=== PATIENT | female | born 1985 | race Caucasian/White ===

== ENCOUNTER 2022-02-22 14:29 | Outpatient (CLI) | payer BC, SELFPAY | END 2022-02-22 14:30 | disposition home or self-care (01) | LOC: ANHGOSHLAB 14:31 | PROVIDERS: PCP Family Medicine; Visit Provider Family Medicine | DX: Z11.1 Encounter for screening for respiratory tuberculosis (principal) | CPT/HCPCS: 36415; 86480 ==

== ENCOUNTER 2022-05-31 09:37 | Outpatient (CLI) | payer BC, SELFPAY ==
--- NOTE | ~2022-05-31 | MM_ITS ---
EXAMINATION: MM screening kristie BI w sweetie HISTORY: Screening TECHNIQUE: Craniocaudal and mediolateral oblique 3-D tomosynthesis images were obtained and synthetic 2-D images were generated. CAD analysis was submitted and interpreted. COMPARISON: No prior mammogram is available for comparison at this institution. BREAST PARENCHYMAL COMPOSITION: The breasts are extremely dense, which lowers the sensitivity of mamm ography FINDINGS: There is no evidence of suspicious mass, calcification, or architectural distortion to sugg est malignancy in either breast. There has been no suspicious interval change. IMPRESSION: 1. No mammographic evidence of malignancy. 2. Recommend routine screening mammography in one year. BI-RADS Category 1: Negative Reviewed, dictated and finalized at location A.
== END 2022-05-31 09:38 | disposition home or self-care (01) ==
LOC: ANHIMG 09:39
PROVIDERS: PCP Family Medicine; Visit Provider Family Medicine
DX: Z12.31 Encounter for screening mammogram for malignant neoplasm of breast (principal)
CPT/HCPCS: 77063; 77067

== ENCOUNTER 2024-07-23 08:18 | Outpatient (CLI) | payer BC, SELFPAY ==
--- OUTSIDE RECORDS SUMMARY | 2024-07-23 08:22 | XMS_ITS | Clinical Summary ---
Author Organization [facility] Address [address] [place] [address] Care Team Providers Care Repair Service Dispatcher Name Role Phone Kristine Turcios MD Primary Care Provider + Hannah Macias MD Unavailable [phone] Allergies No known active allergies Medications albuterol HFA (PROVENTIL HFA,VENTOLIN HFA,PROAIR HFA) 90 mcg/actuation inhaler Inhale 2 puffs every 6 (six) hours as needed for wheezing Active PNV 66-iron asn-mqqeb-bkz- dha 27-1.25-55-300 mg capsule Take by mouth daily Active methylphenidat e HCl (RITALIN) 10 mg tablet Take 1 tablet (10 mg total) by mouth 3 (three) times a day 3 Active aspirin 81 mg enteric coated tablet Take 1 tablet (81 mg total) by mouth daily Active acetaminophen (TYLENOL) 500 mg tablet Take 2 tablets (1,000 mg total) by mouth every 6 (six) hours as needed for pain 4 Active ibuprofen (ADVIL,MOTRIN) 600 mg tabletIndicati ons:Pain Take 1 tablet (600 mg total) by mouth 4 (four) times a day as needed for pain (pain) 4 Active buPROPion XL (WELLBUTRIN XL) 300 mg 24 hr tabletIndicati ons:Depression during in third trimester TAKE 1 TABLET(300 MG) BY MOUTH DAILY 30 tablet 5 Active buPROPion XL (WELLBUTRIN XL) 300 mg 24 hr tabletIndicati ons:Depression during in third trimester Take 1 tablet (300 mg total) by mouth daily 90 tablet 3 4 025 Discontinued Active Problems Problem Noted Date Diagnosed Date Term 08/29/2023 Depression 05/13/2023 Overview (06/13/2023): Wellbutrin 300 Xl-- doing well. Single umbilical artery 04/25/2023 Overview (08/15/2023): Normal NIPT and anatomy screening ultrasound. Supervision of high risk --DELIVERED Overview (08/29/2023): 08/29/23 vaginal delivery, 6lbs 6oz, female, Mercedes Macias, term induction 40 AMA--low risk NIPT SUA--normal growth, continue testing Depression-- wellbutrin XL 300 Lab Results Component Value Date ABORH O Positive 03/08/2023 IDCOOMB Negative 03/08/2023 [id number] Nonreactive 03/08/2023 LABRPR Nonreactive 03/08/2023 RUBELIGG Reactive 03/08/2023 HEPBSAG Nonreactive 03/08/2023 CTRACHOMATIS Not Detected 03/08/2023 [id number] Not Detected 03/08/2023 URINE CULTURE: negative NIPT: low risk GCT @24-28 weeks: 178 ---> 3 hour test normal GBS @36 weeks: negative Resolved Problems Problem Noted Date Diagnosed Date Resolved Date 39 weeks gestation of 08/29/2023 08/29/2023 BV (bacterial vaginosis) on recent pap 04/25/2023 05/13/2023 Overview (04/25/2023): flagyl 500 BID for 7 days Pelvic floor dysfunction 03/08/2023 Overview (03/08/2023): Pelvic floor weakness and stress incontinence PT ordered for [facility] Normal supervision 02/22/2023 07/25/2023 Overview (06/27/2023): 40 AMA--low risk NIPT SUA--follow growth, testing at 32 weeks. Recommended weekly testing but pt unable to come in that often and plans to come in every other week for testing. Rec kick counts. Depression-- wellbutrin XL 300 Pelvic floor PT Continue routine care Facial aging 09/03/2019 02/22/2023 Asthma 02/22/2023 Depression 02/22/2023 ADHD 02/22/2023 Immunizations Immunization Administration Dates Next Due Tdap 07/25/2023 Surgical History Surgery Date Site/Laterality Comments ANTERIOR CRUCIATE LIGAMENT REPAIR 03/11/2010 - 03/10/2011 Left VAGINAL DELIVERY BOY VAGINAL DELIVERY 08/29/2023 vaginal delivery, 6lbs 6oz, female, Mercedes Figueroamaximnaima, term induction Medical History Medical History Date Comments Asthma Depression Adhd Pelvic floor dysfunction 03/08/2023 Pelvic floor weakness and stress incontinence PT ordered for [facility] Family History Medical History Relation Name Comments Osteoarthritis Father COPD Mother Hypertension Mother Relation Name Status Comments Father Mother Social History Tobacco Use Types Packs/Day Years Used Date Smoking Tobacco: Never Passive Smoke Exposure: Past Smokeless Tobacco: Never Tobacco Cessation:Counseling Given: Not Answered Alcohol Use Standard Drinks/Week Comments Not Currently 1 (1 standard drink = 0.6 oz pur e alcohol) AUDIT-C Answer Date Recorded Q1: How often do you have a drink containing alc ohol? Never 02/21/2023 Average Number of Drinks Not on file 023 Frequency of Binge Drinking Not on file 02/08 [place] Depression Scale Answer Date Recorded [place] Depression Scale Total 7 08/31/2023 The thought of harming myself has occurred to me . Never 08/31/2023 Personal Safety Answer Date Recorded Have you ever been in or are you currently in a harmful physical or emotional relationship or is someone making you feel afraid or unsafe? 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 Not on file Obstetrics History Para Term AB IAB SAB Ectopic Multiple Livin g Live Births 2 2 2 0 2 1 Date Outcome GA Total Labor Labor//3rd Weight Sex Type Anes PTL Chaya A1 A5 Name Clin Term M Vag-Sp ont Comments:Favian Drummond 2023 Term 39w 2d 4h 45m 4h 02m/0h 18m/0h 25m 2.88 kg (6 lb 5.6 oz) F Vagina l Epidur al N Livin g 10 10 Mercedes andrade, Hannah Oliva MD Complications:None Delivery Location:This [facility] ([employer] [facility]) Comments Normal Pap smears No sexually transmitted diseases 08/29/23 vaginal delivery, 6lbs 6oz, female, Mercedes Cynthia Colleen, term induction Last Filed Vital Signs Vital Sign Reading Time Taken Comments Blood Pressure 118/75 08/31/2023 8:37 AM CDT Pulse 74 08/31/2023 8:37 AM CDT Temperature 36.6 C (97.8 F) 08/31/2023 8:37 AM CDT Respiratory Rate 18 08/31/2023 8:37 AM CDT Oxygen Saturation 99% 08/31/2023 8:37 AM CDT Inhaled Oxygen Concentration - - Weight 95.3 kg (210 lb) 08/28/2023 11:50 PM CDT Height 165.1 cm (5' 5 ) 08/28/2023 11:50 PM CDT Body Mass Index 34.95 08/28/2023 11:50 PM CDT Plan of Treatment Health Maintenance Due Date Last Done Comments Breast Cancer Screening-Mammogram 1983 Varicella Vaccines (1 of 2 - 13+ 2-dose series) 06/01/1996 Hepatitis B Screening 06/01/2001 Regular Well Visit/Exam 18-64 06/01/2001 Covid-19 Vaccine (2023-2 5 season) 2023 12/08/2021, 12/15/2020, 03/18/2020 Cervical Cancer Screening 03/08/20242022, 03/08/2023 Depression Screening 08/30/2024 08/31/2023 Influenza Vaccine (Season Ended) 2024 12/08/2021, 11/26/2013, 12/11/2012 DTaP/Tdap/Td Vaccine (2 - Td or Tdap) 07/24/2033 07/25/2023 Hepatitis C Screening Completed 03/08/2023 HPV Vaccines Aged Out No longer eligi ble based on patient's age to complete this topic Pneumococcal vaccine <65 Aged Out No longer eligible based on patient's age to complete this topic Procedures Procedure Name Priority Date/Time Associated Diagnosis Comments HEPATITIS C ANTIBODY Routine 03/08/2023 2:43 PM CALLISTHENICS INSTRUCTOR Encounter for supervision of normal , antepartum, unspecified HIGH RISK HPV DNA DETECTION WITH GENOTYPING Routine 03/08/2023 2:34 PM CALLISTHENICS INSTRUCTOR Encounter for supervision of normal , antepartum, unspecified Encounter for Papanicolaou smear for cervical cancer screening Screening for human papillomavirus (HPV) from Last 3 Months or Most Recently Relevant to Health Maintenance Results * Hepatitis C antibody Blood (03/08/2023 2:43 PM CALLISTHENICS INSTRUCTOR) Hep C Ab Nonreactive Nonreactive [facility] Comment: Interpretive Data Nonreactive: Antibodies to HCV not detected. Does NOT exclude the possibility of recent exposure to HCV. Equivocal: Equivocal for HCV antibodies. Supplemental molecular testing will be automatically performed to determine infection status in accordance with current CDC screening recommendations. Reactive: Positive for HCV antibodies. This may represent current or past HCV infection. Supplemental molecular testing will be automatically performed to determine current infection status in accordance with current CDC screening recommendations. Interpretive data was last revised on 2019. Blood 03/08/2023 2:43 PM CALLISTHENICS INSTRUCTOR 03/08/2023 6:45 PM CALLISTHENICS INSTRUCTOR Hannah Macias MD LAB MICROBIOLOGY - GEN ERAL ORDERABLES Edited Result - Final [facility] [address] Department [place] [address] * High Risk HPV DNA Detection with Genotyping (Molecular component) (03/08/2023 2:34 PM CALLISTHENICS INSTRUCTOR) HPV HR 16 Not Detected Not Detected [facility] HPV HR 18 Not Detected Not Detected [facility] HPV HR Non 16/18 Not Detected Not Detected [facility] Comment: Interpretive Data Nucleic acid amplification for detection of high-risk Human Papilloma virus (HPV) is performed by the Azalia Kiley 4800 HPV test, which specifically detects high-risk HPV-16, 18, 31, 33, 35, 39, 45, 51, 52, 56, 58, 59, 66, and 68 genotypes. This assay has been approved by the [place] Food and Drug Administration for detection of HPV in cervical specimens collected by a physician using an endocervical brush/spatula or cervical broom and placed in the ThinPrep Pap Test PreservCyt collection containers. The performance characteristics of this test have been verified by the [facility]. Correlate with separately reported cytology results, as applicable. Interpretive data last revised 22 Endocervical 03/08/2023 2:34 PM CALLISTHENICS INSTRUCTOR 03/08/2023 6:54 PM CALLISTHENICS INSTRUCTOR Narrative [facility] [employer] [facility] - 03/14/2023 9:31 PM CALLISTHENICS INSTRUCTOR Clinical history and diagnosis->Z01.419 Number of vials->1 Testing type->Screening Last menstrual period (date if known)->11/27/22 Menstrual status-> Hannah Macias MD LAB BODY FLUIDS AND ST OOLS ORDERABLES Final Result [facility] [address] Department [place] [address] from Last 3 Months or Most Recently Relevant to Health Maintenance Insurance [place] Advance Directives For more information, please contact: [phone] * Full Code (Latest Code Status on File) Date Activated Date Inactivated Comments 08/29/2023 3:42 PM 08/31/2023 3:50 PM * Full Code Date Activated Date Inactivated Comments 08/29/2023 12:43 AM 08/29/2023 3:42 PM Full CPR in case of cardiopulmonary arrest Care Teams Repair Service Dispatcher Relationship Specialty Start Date End Date Kristine Turcios MD PCP - General Family Medicine 02/14/23 Hannah Macias MD Consulting Physician Obstetrics and Gynecology 02/14/23
--- OUTSIDE RECORDS SUMMARY | 2024-07-23 08:22 | XMS_ITS | Referral Summary ---
Author Organization [facility] Address [address] [place] [address] Care Team Providers Care Java Scala Developer Name Role Phone Kristine Turcios MD Primary Care Provider + Hannah Macias MD Unavailable [phone] Allergies No known active allergies Medications albuterol HFA (PROVENTIL HFA,VENTOLIN HFA,PROAIR HFA) 90 mcg/actuation inhaler Inhale 2 puffs every 6 (six) hours as needed for wheezing Active PNV 66-iron mwy-zkikm-ntn- dha 27-1.25-55-300 mg capsule Take by mouth [...] ABORH O Positive 03/08/2023 IDCOOMB Negative 03/08/2023 [id number] Nonreactive 03/08/2023 LABRPR Nonreactive 03/08/2023 RUBELIGG Reactive [...] weakness and stress incontinence PT ordered for [facility] Normal supervision 02/22/2023 07/25/2023 Overview (06/27/2023): 40 [...] Immunization Administration Dates Next Due Tdap 07/25/2023 Social History Tobacco Use Types Packs/Day Years [...] of Binge Drinking Not on file 02/08 [place] Depression Scale Answer Date Recorded [place] Depression Scale Total 7 08/31/2023 The thought [...] on file Legal Sex Female 12:53 PM DIPPER CLOCK AND WATCH HANDS Gender Identity Not on file Sexual Orientation Not on file 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 Last Filed Vital Signs Vital Sign Reading [...] 08/28/2023 11:50 PM CDT Plan of Treatment Not on file Procedures Procedure Name Priority Date/Time Associated Diagnosis Comments HEPATITIS C ANTIBODY Routine 03/08/2023 2:43 PM DIPPER CLOCK AND WATCH HANDS Encounter for supervision of normal , antepartum, unspecified HIGH RISK HPV DNA DETECTION WITH GENOTYPING Routine 03/08/2023 2:34 PM DIPPER CLOCK AND WATCH HANDS Encounter for supervision of normal , antepartum, unspecified Encounter for Papanicolaou smear for cervical cancer screening Screening for human papillomavirus (HPV) from Last 3 Months or Most Recently Relevant to Health Maintenance Results * Hepatitis C antibody Blood (03/08/2023 2:43 PM DIPPER CLOCK AND WATCH HANDS) Hep C Ab Nonreactive Nonreactive [facility] Comment: Interpretive Data Nonreactive: Antibodies to HCV [...] revised on 2019. Blood 03/08/2023 2:43 PM DIPPER CLOCK AND WATCH HANDS 03/08/2023 6:45 PM DIPPER CLOCK AND WATCH HANDS Hannah Macias MD LAB MICROBIOLOGY - GEN ERAL ORDERABLES Edited Result - Final [facility] [address] Department [place] [address] * High Risk HPV DNA Detection with Genotyping (Molecular component) (03/08/2023 2:34 PM DIPPER CLOCK AND WATCH HANDS) HPV HR 16 Not Detected Not Detected [facility] HPV HR 18 Not Detected Not Detected [facility] HPV HR Non 16/18 Not Detected Not Detected [facility] Comment: Interpretive Data Nucleic acid amplification for [...] this test have been verified by the [facility]. Correlate with separately reported cytology results, as applicable. Interpretive data last revised 22 Endocervical 03/08/2023 2:34 PM DIPPER CLOCK AND WATCH HANDS 03/08/2023 6:54 PM DIPPER CLOCK AND WATCH HANDS Narrative [facility] - 03/14/2023 9:31 PM DIPPER CLOCK AND WATCH HANDS Clinical history and diagnosis->Z01.419 Number of vials->1 Testing type->Screening Last menstrual period (date if known)->11/27/22 Menstrual status-> Hannah Macias MD LAB BODY FLUIDS AND ST OOLS ORDERABLES Final Result [facility] [address] Department [place] [address] from Last 3 Months or Most Recently Relevant to Health Maintenance Insurance [place] Advance Directives For more information, please contact: [phone] * Full Code (Latest Code Status on File) Date Activated Date Inactivated Comments 08/29/2023 3:42 PM 08/31/2023 3:50 PM * Full Code Date Activated Date Inactivated Comments 08/29/2023 12:43 AM 08/29/2023 3:42 PM Full CPR in case of cardiopulmonary arrest Care Teams Java Scala Developer Relationship Specialty Start Date End Date Kristine Turcios MD PCP - General Family Medicine 02/14/23 Hannah Macias MD Consulting Physician Obstetrics and Gynecology 02/14/23
[2024-07-23 19:11] LABS: Basophils Absolute Auto 0.1 K/mm3 (0.0-0.1); Basophils Percent Auto 0.7 % (0.2-1.2); Eosinophils Absolute Auto 0.2 K/mm3 (0-0.3); Eosinophils Percent Auto 2.9 % (0-4.4); Hematocrit 42.7 % (37.0-47.0); Hemoglobin 14.1 g/dL (12.0-15.0); Immature Granulocyte Absolute 0.02 K/mm3 (0.00-0.031); Immature Granulocyte Percent A 0.3 % (0-0.5); Lymphocytes Absolute Auto 2.53 K/mm3 (0.9-3.2); Lymphocytes Percent Auto 35.3 % (18.3-44.2); Mean Corpuscular Hemoglobin 31.5 pg (26-34); Mean Corpuscular Volume 95.3 fl (80-100); Mean Platelet Volume 9.7 fl (7.4-10.4); Monocytes Absolute Auto 0.4 K/mm3 (0.1-0.6); Monocytes Percent Auto 6.1 % (2.6-8.5); Neutrophils Absolute Auto 3.9 K/mm3 (1.3-6.7); Neutrophils Percent Auto 54.7 % (45.5-73.1); Platelet Count Result 264 k/mm3 (150-375); Red Blood Count 4.48 M/mm3 (4.2-5.4); Red Cell Distribution Width 12.6 % (11.5-14.5); White Blood Count 7.2 K/mm3 (4.5-10.0)
[2024-07-23 19:38] LABS: LDL Cholesterol Direct 75 mg/dL
[2024-07-23 20:02] LABS: Alanine Aminotransferase 18 U/L (6-35); Albumin Level 4.7 g/dL (3.5-5.1); Alkaline Phosphatase 63 U/L (38-126); Anion Gap 13 mmol/L (4-12); Aspartate Amino Transferase 35 U/L (14-36); Bilirubin,Total 0.7 mg/dL (0.2-1.3); Blood Urea Nitrogen 13 mg/dL (7-17); Calcium 9.2 mg/dL (8.4-10.2); Carbon Dioxide 21 mmol/L (22-30); Chloride 99 mmol/L (98-107); Cholesterol 184 mg/dL (0-200); Estimated Glomerular Filt Rate > 60; Glucose 49 mg/dL (65-110); HDL Direct 96 mg/dL; Potassium 3.6 mmol/L (3.4-5.0); Sodium 133 mmol/L (137-145); Triglycerides 65 mg/dL (<150)
== END 2024-07-23 08:19 | disposition home or self-care (01) ==
LOC: ANHGOSHLAB 08:19
PROVIDERS: PCP Family Medicine; Visit Provider Family Medicine
DX: Z00.00 Encounter for general adult medical examination without abnormal findings (principal)
CPT/HCPCS: 36415; 80053; 80061; 85025

== ENCOUNTER 2024-08-14 14:36 | Outpatient (CLI) | payer BC, SELFPAY ==
--- NOTE | ~2024-08-14 | MM_ITS ---
EXAMINATION: MM screening kristie BI w sweetie HISTORY: Screening TECHNIQUE: Craniocaudal and mediolateral oblique 3-D tomosynthesis images were obtained and synthetic 2-D images were generated. CAD analysis was submitted and interpreted. COMPARISON: Comparison to multiple prior studies sequentially, with oldest reviewed study dated 05/31. BREAST PARENCHYMAL COMPOSITION: Dense: The breasts are extremely dense, which lowers the sensitivity of mammography. FINDINGS: There is no evidence of suspicious mass, calcification, or architectural distortion to sugg est malignancy in either breast. There has been no suspicious interval change. IMPRESSION: 1. No mammographic evidence of malignancy. 2. Recommend routine screening mammography in one year. BI-RADS Category 1: Negative Reviewed, dictated and finalized at location []
--- OUTSIDE RECORDS SUMMARY | 2024-08-14 14:39 | XMS_ITS | Referral Summary ---
Author Organization [facility] Address [address] [place] [address] Care Team Providers Care Furnace Hand Name Role Phone Kristine Turcios MD Primary Care Provider + Hannah Macias MD Unavailable [phone] Allergies No known active allergies Medications albuterol HFA (PROVENTIL HFA,VENTOLIN HFA,PROAIR HFA) 90 mcg/actuation inhaler Inhale 2 puffs every 6 (six) hours as needed for wheezing Active PNV 66-iron kfl-tthqh-krb-d deng 27-1.25-55-300 mg capsule Take by mouth daily Active methylphenidate HCl (RITALIN) 10 mg tablet Take 1 tablet (10 mg total) by mouth 3 (three) times a day 01/01/2023 Active aspirin 81 mg enteric coated tablet Take 1 tablet (81 mg total) by mouth daily Active acetaminophen (TYLENOL) 500 mg tablet Take 2 tablets (1,000 mg total) by mouth every 6 (six) hours as needed for pain 08/30/2023 Active ibuprofen (ADVIL,MOTRIN) 600 mg tabletIndicatio ns:Pain Take 1 tablet (600 mg total) by mouth 4 (four) times a day as needed for pain (pain) 08/30/2023 Active buPROPion XL (WELLBUTRIN XL) 300 mg 24 hr tabletIndicatio ns:Depression during in third trimester TAKE 1 TABLET(300 MG) BY MOUTH DAILY 30 tablet 06/30/2024 Active Active Problems Problem Noted Date Diagnosed Date [...] ABORH O Positive 03/08/2023 IDCOOMB Negative 03/08/2023 [id number] Nonreactive 03/08/2023 LABRPR Nonreactive 03/08/2023 RUBELIGG Reactive [...] weakness and stress incontinence PT ordered for [facility] Normal supervision 02/22/2023 07/25/2023 Overview (06/27/2023): [...] of Binge Drinking Not on file 02/08 [place] Depression Scale Answer Date Recorded [place] Depression Scale Total 7 08/31/2023 The thought [...] on file Legal Sex Female 12:53 PM INDEX CLERK Gender Identity Not on file Sexual Orientation Not on file 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 Not on virginie [...] 11:50 PM CDT Height 165.1 cm (5' 5) 08/28/2023 11:50 PM CDT Body Mass Index 34.95 08/28/2023 11:50 PM CDT Plan of Treatment Not on file Procedures Procedure Name Priority Date/Time Associated Diagnosis Comments HEPATITIS C ANTIBODY Routine 03/08/2023 2:43 PM INDEX CLERK Encounter for supervision of normal , antepartum, unspecified HIGH RISK HPV DNA DETECTION WITH GENOTYPING Routine 03/08/2023 2:34 PM INDEX CLERK Encounter for supervision of normal , antepartum, unspecified Encounter for Papanicolaou smear for cervical cancer screening Screening for human papillomavirus (HPV) from Last 3 Months or Most Recently Relevant to Health Maintenance Results * Hepatitis C antibody Blood (03/08/2023 2:43 PM INDEX CLERK) Hep C Ab Nonreactive Nonreactive [facility] revised on 2019. Blood 03/08/2023 2:43 PM INDEX CLERK 03/08/2023 6:45 PM INDEX CLERK Hannah Macias MD LAB MICROBIOLOGY - GEN ERAL ORDERABLES Edited Result - Final [facility] [address] Department [place] [address] * High Risk HPV DNA Detection with Genotyping (Molecular component) (03/08/2023 2:34 PM INDEX CLERK) HPV HR 16 Not Detected Not Detected [...] this test have been verified by the [facility]. Correlate with separately reported cytology results, as applicable. Interpretive data last revised 22 Endocervical 03/08/2023 2:34 PM INDEX CLERK 03/08/2023 6:54 PM INDEX CLERK Narrative [facility] - 03/14/2023 9:31 PM INDEX CLERK Clinical history and diagnosis->Z01.419 Number of vials->1 Testing type->Screening Last menstrual period (date if known)->11/27/22 Menstrual status-> Hannah Macias MD LAB BODY FLUIDS AND [facility] ORDERABLES Final Result [facility] [address] Department [place] [address] from Last 3 Months or Most Recently Relevant to Health Maintenance Insurance [place] Advance Directives For more information, please contact: [phone] * Full Code (Latest Code Status on File) Date Activated Date Inactivated Comments 08/29/2023 3:42 PM 08/31/2023 3:50 PM * Full Code Date Activated Date Inactivated Comments 08/29/2023 12:43 AM 08/29/2023 3:42 PM Full CPR in case of cardiopulmonary arrest Care Teams Furnace Hand Relationship Specialty Start Date End Date Kristine Turcios MD PCP - General Family Medicine 02/14/23 Hannah Macias MD Consulting Physician Obstetrics and Gynecology 02/14/23
--- OUTSIDE RECORDS SUMMARY | 2024-08-14 14:39 | XMS_ITS | Clinical Summary ---
Author Organization [facility] Address [address] [place] [address] Care Team Providers Care Director Of Distance Learning Name Role Phone Kristine Turcios MD Primary Care Provider + Hannah Macias MD Unavailable [phone] Allergies No known active allergies Medications albuterol HFA (PROVENTIL HFA,VENTOLIN HFA,PROAIR HFA) 90 mcg/actuation inhaler Inhale 2 puffs every 6 (six) hours as needed for wheezing Active PNV 66-iron [id number] deng 27-1.25-55-300 mg capsule Take by mouth [...] ABORH O Positive 03/08/2023 IDCOOMB Negative 03/08/2023 [id number] Nonreactive 03/08/2023 LABRPR Nonreactive 03/08/2023 RUBELIGG Reactive [...] weakness and stress incontinence PT ordered for [facility] Normal supervision 02/22/2023 07/25/2023 Overview (06/27/2023): [...] 08/29/2023 vaginal delivery, 6lbs 6oz, female, Mercedes Macias, term induction Medical History Medical History Date Comments Asthma Depression Adhd Pelvic floor dysfunction 03/08/2023 Pelvic floor weakness and stress incontinence PT ordered for [facility] Family History Medical History Relation Name Comments [...] of Binge Drinking Not on file 02/08 [place] Depression Scale Answer Date Recorded [place] Depression Scale Total 7 08/31/2023 The thought [...] on file Legal Sex Female 12:53 PM MARKETING ANALYTICS MANAGER Gender Identity Not on file Sexual Orientation Not on file 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 Not on file Obstetrics History Para Term AB IAB SAB Ectopic Multiple Livin g Live Births 2 2 2 0 2 1 Date Outcome GA Total Labor Labor/2nd/3rd Weight Sex Type Anes PTL Chaya A1 A5 Name Clin Term M Vag-Sp ont Comments:[place] 2023 Term 39w 2d 4h 45m 4h 02m/0h 18m/0h 25m 2.88 kg (6 lb 5.6 oz) F Vagina l Epidur al N Livin g 10 10 Mercedes andrade, Hannah Oliva MD Complications:None Delivery Location:This Facil ity ([facility]) Comments Normal Pap smears No sexually transmitted diseases 08/29/23 vaginal delivery, 6lbs 6oz, female, Mercedes Macias, term induction Last Filed Vital Signs Vital [...] Regular Well Visit/Exam 18-64 06/01/2001 Covid-19 Vaccine ( - 2023-2 5 season) 2023 12/08/2021, 12/15/2020, 03/18/2020 Cervical [...] HEPATITIS C ANTIBODY Routine 03/08/2023 2:43 PM MARKETING ANALYTICS MANAGER Encounter for supervision of normal , antepartum, unspecified HIGH RISK HPV DNA DETECTION WITH GENOTYPING Routine 03/08/2023 2:34 PM MARKETING ANALYTICS MANAGER Encounter for supervision of normal , antepartum, unspecified Encounter for Papanicolaou smear for cervical cancer screening Screening for human papillomavirus (HPV) from Last 3 Months or Most Recently Relevant to Health Maintenance Results * Hepatitis C antibody Blood (03/08/2023 2:43 PM MARKETING ANALYTICS MANAGER) Hep C Ab Nonreactive Nonreactive [facility] Comment: Interpretive Data Nonreactive: Antibodies to HCV [...] revised on 2019. Blood 03/08/2023 2:43 PM MARKETING ANALYTICS MANAGER 03/08/2023 6:45 PM MARKETING ANALYTICS MANAGER Hannah Macias MD LAB MICROBIOLOGY - GEN ERAL ORDERABLES Edited Result - Final [facility] [address] Department [place] [address] * High Risk HPV DNA Detection with Genotyping (Molecular component) (03/08/2023 2:34 PM MARKETING ANALYTICS MANAGER) HPV HR 16 Not Detected Not Detected [facility] HPV HR 18 Not Detected Not Detected [facility] HPV HR Non 16/18 Not Detected Not Detected [facility] Comment: Interpretive Data Nucleic acid amplification for [...] this test have been verified by the [facility]. Correlate with separately reported cytology results, as applicable. Interpretive data last revised 22 [facility] 03/08/2023 2:34 PM MARKETING ANALYTICS MANAGER 03/08/2023 6:54 PM MARKETING ANALYTICS MANAGER Narrative [facility] - 03/14/2023 9:31 PM MARKETING ANALYTICS MANAGER Clinical history and diagnosis->Z01.419 Number of vials->1 Testing type->Screening Last menstrual period (date if known)->11/27/22 Menstrual status-> Hannah Macias MD LAB BODY FLUIDS AND ST OOLS ORDERABLES Final Result [facility] [address] Department [place] [address] from Last 3 Months or Most Recently Relevant to Health Maintenance [place] Advance Directives For more information, please contact: [phone] * Full Code (Latest Code Status on File) Date Activated Date Inactivated Comments 08/29/2023 3:42 PM 08/31/2023 3:50 PM * Full Code Date Activated Date Inactivated Comments 08/29/2023 12:43 AM 08/29/2023 3:42 PM Full CPR in case of cardiopulmonary arrest Care Teams Director Of Distance Learning Relationship Specialty Start Date End Date Kristine Turcios MD PCP - General Family Medicine 02/14/23 Hannah Macias MD Consulting Physician Obstetrics and Gynecology 02/14/23
== END 2024-08-14 14:37 | disposition home or self-care (01) ==
LOC: ANHIMG 14:37
PROVIDERS: PCP Family Medicine; Visit Provider Family Medicine
DX: Z12.31 Encounter for screening mammogram for malignant neoplasm of breast (principal); N60.19 Diffuse cystic mastopathy of unspecified breast
CPT/HCPCS: 77063; 77067